=== PATIENT | female | born 1945 | race African-American/Black ===

== ENCOUNTER 2019-04-23 17:22 | Emergency (ER) | payer MEDICARE ==
[~2019-04-23] VITALS: Ht 154.9 cm; Wt 78.0 kg
[2019-04-23] MEDS ORDERED: LIDOCAINE 1%/EPI 1:100,000 10 ML VIAL IJ ONE (20:45)
[2019-04-23] MEDS ORDERED: TETANUS, DIPHTHERIA, PERTUSSIS VAC/PF 0.5ML (>7YR OLD) IM ONE (20:45)
[2019-04-23] MEDS ORDERED: LIDOCAINE HCL/EPINEPHRINE 1%-EPI 1:100,000 20 ML VIAL IJ NR (20:51)
[2019-04-23] MEDS ORDERED: TRAMADOL 50MG TABLET PO ONE (21:00)
[2019-04-23 21:10] VITALS: BP 169/86
== END 2019-04-23 22:46 | disposition home or self-care (01) ==
LOC: ER 17:22
DX: S01.01XA Laceration without foreign body of scalp, initial encounter (principal); S82.092A Other fracture of left patella, initial encounter for closed fracture; H40.9 Unspecified glaucoma; E78.00 Pure hypercholesterolemia, unspecified; I10 Essential (primary) hypertension; W10.8XXA Fall (on) (from) other stairs and steps, initial encounter; Y93.89 Activity, other specified; Y92.89 Other specified places as the place of occurrence of the external cause; Y99.8 Other external cause status; Z90.710 Acquired absence of both cervix and uterus
CPT/HCPCS: 12002; 70450; 73562; 73610; 90471; 90715; 99284; J3490